=== PATIENT | male | born 1955 | race Caucasian/White ===

== ENCOUNTER 2016-12-25 03:28 | Emergency (ER) | payer OTHER ==
--- NOTE | 2016-12-25 04:22 | XRay Report ---
FINAL REPORT EXAM: XR SHOULDER 2+V LT HISTORY: fall, L. shoulder pain TECHNIQUE: Three views of the left shoulder were submitted. FINDINGS: There is inferior subluxation of the humeral head relative to the glenoid. There is no evidence of fracture. The AC joint appears normal. The soft tissues are well maintained. IMPRESSION: Partial inferior subluxation of the humeral head relative to the glenoid. No associated fracture.
--- NOTE | 2016-12-25 04:44 | Cat Scan Report ---
FINAL REPORT EXAM: CT HEAD/BRAIN WO CON HISTORY: fall, LOC TECHNIQUE: Routine imaging was obtained of the brain without IV contrast. FINDINGS: There are no attenuation abnormalities. The ventricular system is appropriate in size and is symmetric. There is no evidence of skull fracture. The sinuses reveal mucosal thickening in the ethmoidal and sphenoid sinuses. IMPRESSION: No acute intracranial process. Sinusitis as described
--- NOTE | 2016-12-25 04:48 | Cat Scan Report ---
FINAL REPORT EXAM: CT CERVICAL SPINE WO CON HISTORY: FALL WITH NECK PAIN TECHNIQUE: Routine axial imaging was obtained of the cervical spine with sagittal and coronal reconstructions. FINDINGS: There is mild narrowing of the C5-C6 disc with facet arthropathy changes at this level. Additional facet arthropathy changes seen in the upper cervical spine. The canal size is normal. There is no evidence of fracture. The pre vertebral soft tissues appear intact. C1-C2 articulation reveals arthritic changes. IMPRESSION: No evidence of acute injury. Extensive arthritic changes noted.
--- NOTE | 2016-12-25 08:53 | Emergency Department Report ---
ED Syncope HPI - General Chief Complaint: Syncope Stated Complaint: PASS OUT Time Seen by Provider: 12/25/16 08:50 - Related Data Allergies/Adverse Reactions: Allergies No Known Allergies Allergy (Unverified 12/25/16 03:40) ED Review of Systems ROS: Stated complaint: PASS OUT Other details as noted in HPI ED Past Medical Hx - Past Medical History Previous Medical History?: No - Surgical History Past Surgical History?: No - Social History Smoking Status: Never Smoker ED Physical Exam - General Limitations: No Limitations ED Course Vital Signs 12/25/16 12/25/16 12/25/16 03:35 03:41 08:15 Temperature 98.3 F 98.3 F Pulse Rate 65 69 Respiratory 16 16 Rate Blood Pressure 132/61 132/61 131/75 O2 Sat by Pulse 96 100 Oximetry 12/25/16 12/25/16 08:18 08:19 Temperature Pulse Rate 57 L Respiratory 16 16 Rate Blood Pressure O2 Sat by Pulse 96 Oximetry ED Medical Decision Making - EKG Data -: EKG Interpreted by Me EKG shows normal: sinus rhythm, axis, intervals, QRS complexes, ST-T waves Rate: normal - EKG Data 1 atrial premature beats. J-point elevation. No ST elevation. No evidence of acute ischemia. 12/25/16 08:51 - Radiology Data interpreted by me: CT the head and cervical spine showed no acute process or evidence of injury. Critical care attestation.: If time is entered above; I have spent that time in minutes in the direct care of this critically ill patient, excluding procedure time. ED Disposition Condition: Stable Referrals: PRIMARY CARE, [Primary Care Provider] - 3-5 Days
[2016-12-25 09:09] LABS: Basophils % (Auto) 0.6 % (0.0-1.8); Eosinophils % (Auto) 4.3 % (0.0-4.3); Hematocrit 42.4 % (35.5-45.6); Hemoglobin 14.7 gm/dl (11.8-15.2); Mean Corpuscular HGB Conc 35 % (32-34); Mean Corpuscular Hemoglobin 30 pg (28-32); Mean Corpuscular Volume 87 fl (84-94); Platelet Count 181 K/mm3 (140-440); Red Cell Distribution Width 13.3 % (13.2-15.2); White Blood Count 8.2 K/mm3 (4.5-11.0)
[2016-12-25] MEDS ORDERED: TORADOL IM ONE (09:09)
--- NOTE | 2016-12-25 09:11 | Emergency Department Report ---
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 He did not have a syncopal episode. He fell and hit the back of his head. He complains of left shoulder pain and some swelling of the back of his head. He states he is having some difficulty in moving his shoulder. He states that he's had no specific injury of his shoulder in the past but he periodically has had problems with arthritis in cold weather. He denies other injury. History was obtained in Hungarian. -: Sudden Location: left (shoulder) Radiation: non-radiation Severity scale (0 -10): 0 Quality: aching Consistency: constant Improves with: none Worsens with: none Associated Symptoms: denies other symptoms Treatments Prior to Arrival: none - Related Data Previous Rx's Medication Instructions Recorded Last Taken Type Naproxen [Naprosyn] 500 mg PO BID #10 tablet 12/25/16 Unknown Rx traMADol [Ultram] 50 mg PO Q6HR PRN #14 tablet 12/25/16 Unknown Rx Allergies Allergy/AdvReac Type Severity Reaction Status Date / Time No Known Allergies Allergy Unverified 12/25/16 03:40 ED Review of Systems ROS: Stated complaint: PASS OUT Other details as noted in HPI Constitutional: denies: chills, fever Eyes: denies: eye pain, eye discharge, vision change ENT: denies: ear pain, throat pain Respiratory: denies: cough, shortness of breath, wheezing Cardiovascular: denies: chest pain, palpitations Endocrine: no symptoms reported Gastrointestinal: denies: abdominal pain, nausea, diarrhea Genitourinary: denies: urgency, dysuria Musculoskeletal: as per HPI. denies: back pain, joint swelling, arthralgia Skin: denies: rash, lesions Neurological: other (states it difficult to move shoulder secondary to pain but I do not think he is having any motor or sensory changes). denies: headache, weakness, numbness, paresthesias Psychiatric: denies: anxiety, depression Hematological/Lymphatic: denies: easy bleeding, easy bruising ED Past Medical Hx - Past Medical History Previous Medical History?: No - Surgical History Past Surgical History?: No - Social History Smoking Status: Never Smoker - Medications Home Medications: Home Medications Medication Instructions Recorded Confirmed Last Taken Type Naproxen [Naprosyn] 500 mg PO BID #10 tablet 12/25/16 Unknown Rx traMADol [Ultram] 50 mg PO Q6HR PRN #14 tablet 12/25/16 Unknown Rx ED Physical Exam - General Limitations: No Limitations General appearance: alert, in no apparent distress - Head Head exam: Present: normocephalic, other (some posterior soreness no supple hematoma) - Eye Eye exam: Present: normal appearance, PERRL, EOMI. Absent: scleral icterus - ENT ENT exam: Present: mucous membranes moist - Neck Neck exam: Present: normal inspection - Respiratory Respiratory exam: Present: normal lung sounds bilaterally. Absent: respiratory distress - Cardiovascular Cardiovascular Exam: Present: regular rate, normal rhythm. Absent: systolic murmur, diastolic murmur, rubs, gallop - GI/Abdominal GI/Abdominal exam: Present: soft, normal bowel sounds. Absent: distended, tenderness, guarding, rebound, rigid - Rectal Rectal exam: Present: deferred - Extremities Exam Extremities exam: Present: normal inspection, full ROM (range of motion of the shoulder is full but there is some tenderness), tenderness. Absent: calf tenderness - Back Exam Back exam: Present: normal inspection. Absent: tenderness, CVA tenderness (R), CVA tenderness (L), muscle spasm, paraspinal tenderness, vertebral tenderness - Neurological Exam Neurological exam: Present: alert, oriented X3, CN II-XII intact. Absent: motor sensory deficit (patient had poor effort with motor testing of his left arm and hand group. However is straight appears to be 55 without and there is no sensory deficit) - Psychiatric Psychiatric exam: Present: normal affect, normal mood - Skin Skin exam: Present: warm, dry, intact, normal color. Absent: rash ED Course Vital Signs 12/25/16 12/25/16 12/25/16 03:35 03:41 08:15 Temperature 98.3 F 98.3 F Pulse Rate 65 69 Respiratory 16 16 Rate Blood Pressure 132/61 132/61 131/75 O2 Sat by Pulse 96 100 Oximetry 12/25/16 12/25/16 12/25/16 08:18 08:19 08:30 Temperature Pulse Rate 57 L Respiratory 16 16 Rate Blood Pressure 111/58 O2 Sat by Pulse 96 97 Oximetry 12/25/16 09:00 Temperature Pulse Rate Respiratory Rate Blood Pressure 131/75 O2 Sat by Pulse 94 Oximetry ED Medical Decision Making - Lab Data Result diagrams: 12/25/16 08:41 12/25/16 08:41 Laboratory Results - last 24 hr 12/25/16 08:41 WBC 8.2 RBC 4.90 Hgb 14.7 Hct 42.4 MCV 87 MCH 30 MCHC 35 H RDW 13.3 Plt Count 181 Lymph % (Auto) 26.5 Ness % (Auto) 7.1 Eos % (Auto) 4.3 Baso % (Auto) 0.6 Lymph # 2.2 Ness # 0.6 Eos # 0.4 Baso # 0.0 Seg Neutrophils % 61.5 Seg Neutrophils # 5.1 - Radiology Data Radiology results: report reviewed interpreted by me: CT of the head and cervical spine showed no acute process. X-ray of the left shoulder shows no acute process. There is an AICD present. Critical care attestation.: If time is entered above; I have spent that time in minutes in the direct care of this critically ill patient, excluding procedure time. ED Disposition Clinical Impression: Sprain of shoulder, left Qualifiers: Encounter type: initial encounter Shoulder sprain type: unspecified sprain Qualified Code(s): S43.402A - Unspecified sprain of left shoulder joint, initial encounter Minor head injury Qualifiers: Encounter type: initial encounter Qualified Code(s): S00.90XA - Unspecified superficial injury of unspecified part of head, initial encounter Disposition: DC- TO HOME OR SELFCARE Is pt being admited?: No Does the pt Need Aspirin: No Condition: Stable Instructions: Shoulder Sprain (ED), Minor Head Injury (ED) Additional Instructions: I am recommending further consultation with an orthopedist concerning your shoulder injury. Use a shoulder sling until cleared by the orthopedic doctor. Rx as needed for pain. Prescriptions: Naproxen [Naprosyn] 500 mg PO BID #10 tablet traMADol [Ultram] 50 mg PO Q6HR PRN #14 tablet PRN Reason: Pain Referrals: PRIMARY CARE, [Primary Care Provider] - 3-5 Days Time of Disposition: 09:31
[2016-12-25 09:18] LABS: Anion Gap 15 mmol/L; BUN/Creatinine Ratio 23; Blood Urea Nitrogen 14 mg/dL (9-20); Calcium 8.7 mg/dL (8.4-10.2); Carbon Dioxide 29 mmol/L (22-30); Chloride 102.7 mmol/L (98-107); Glucose 114 mg/dL (75-100); Potassium 4.3 mmol/L (3.6-5.0); Sodium 142 mmol/L (137-145)
[2016-12-25 09:59] VITALS: BP 111/58
== END 2016-12-25 10:17 | disposition home or self-care (01) ==
LOC: ED 03:28
DX: S43.402A Unspecified sprain of left shoulder joint, initial encounter (principal); S09.90XA Unspecified injury of head, initial encounter; W18.30XA Fall on same level, unspecified, initial encounter; Y93.89 Activity, other specified; Y92.89 Other specified places as the place of occurrence of the external cause; Y99.8 Other external cause status
CPT/HCPCS: 36415; 70450; 72125; 73030; 80048; 84484; 85025; 93005; 93010; 96372; 99285; J1885